=== PATIENT | male | born 1950 | race American Indian/Alaskan Native ===

== ENCOUNTER 2018-03-07 09:47 | Outpatient (CLI) | payer OTHER ==
[2018-03-07] MEDS ORDERED: LISINOPRIL20 MG PO (21:41)
[2018-03-07] MEDS ORDERED: METOPROLOL SUCC25 MG PO (21:42)
[2018-03-07] MEDS ORDERED: ISOSORBIDE MONO60 MG PO (21:43)
[2018-03-07] MEDS ORDERED: PRAVASTATIN SOD40 MG PO (21:44)
[2018-03-07] MEDS ORDERED: FORTAMET1000 MG PO (21:44)
[2018-03-07] MEDS ORDERED: PANTOPRAZOLE SO40 MG PO (21:44)
[2018-03-07] MEDS ORDERED: ALLOPURINOL300 MG PO (21:44)
[2018-03-07] MEDS ORDERED: CLOPIDOGREL BIS75 MG PO (21:45)
[2018-03-07] MEDS ORDERED: XARELTO15 MG PO (21:45)
[2018-03-07] MEDS ORDERED: TIKOSYN250 MCG PO (21:45)
== END 2018-03-07 09:58 | disposition home or self-care (01) ==
LOC: RAD 09:47
DX: J40 Bronchitis, not specified as acute or chronic (principal)

== ENCOUNTER 2018-03-07 21:27 | Emergency (ER) | payer OTHER, BC ==
[~2018-03-07] VITALS: Ht 177.8 cm; Wt 97.1 kg
[2018-03-07] MEDS ORDERED: LISINOPRIL20 MG PO (21:41)
[2018-03-07] MEDS ORDERED: METOPROLOL SUCC25 MG PO (21:42)
[2018-03-07] MEDS ORDERED: ISOSORBIDE MONO60 MG PO (21:43)
[2018-03-07] MEDS ORDERED: ALLOPURINOL300 MG PO (21:44)
[2018-03-07] MEDS ORDERED: PRAVASTATIN SOD40 MG PO (21:44)
[2018-03-07] MEDS ORDERED: FORTAMET1000 MG PO (21:44)
[2018-03-07] MEDS ORDERED: PANTOPRAZOLE SO40 MG PO (21:44)
[2018-03-07] MEDS ORDERED: CLOPIDOGREL BIS75 MG PO (21:45)
[2018-03-07] MEDS ORDERED: XARELTO15 MG PO (21:45)
[2018-03-07] MEDS ORDERED: TIKOSYN250 MCG PO (21:45)
== END 2018-03-07 23:12 | disposition home or self-care (01) ==
LOC: ER 21:27
DX: I10 Essential (primary) hypertension (principal)